=== PATIENT | male | born 1970 | race Caucasian/White ===

== ENCOUNTER → 2018-04-03 | Outpatient (CLI) | payer OTHER ==
[~2018-04-03] MED LIST: ALPR1TAB3 PO; DICL1GEL12 TOP; IBUP-1050 PO; LRS20 PO; NAPR1TAB9 PO; OMEP-107 PO
[2018-04-03 12:09] LABS: HEMATOCRIT 52.1 % (42-52); HEMOGLOBIN 18.4 g/dL (14.0-18.0); MEAN CELL VOLUME 89.8 fL (80-100); MEAN CORPUSCULAR HEMOGLOBIN 31.7 pg (25-34); MEAN CORPUSCULAR HGB CONC 35.3 g/dl (32-36); MEAN PLATELET VOLUME 9.8 fL (7.4-10.4); PLATELET COUNT 167 K/uL (130-400); RED CELL DISTRIBUTION WIDTH CV 13.6 % (11.5-14.5); RED CELL DISTRIBUTION WIDTH SD 44.4 fL (36.4-46.3); WHITE BLOOD COUNT 9.24 K/uL (4.8-10.8)
[2018-04-03 12:21] LABS: ALT/SGPT 88 U/L (12-78); AST/SGOT 52 U/L (15-37); BLOOD UREA NITROGEN 20 mg/dl (7-18); CALCIUM 9.1 mg/dl (8.5-10.1); CARBON DIOXIDE 28 mmol/L (21-32); CHOLESTEROL 194 mg/dl (0-200); CREATININE 1.62 mg/dl (0.60-1.40); GLUCOSE 79 mg/dl (70-99); SODIUM 140 mmol/L (136-145)
[2018-04-03 12:24] LABS: LDL CHOLESTEROL CALCULATED 123 mg/dl
== END | disposition home or self-care (01) ==
LOC: C.LAB1850 10:52
PROVIDERS: ATTEND Internal Medicine Cardiovascular Disease
DX: Z00.00 Encounter for general adult medical examination without abnormal findings (principal); R79.89 Other specified abnormal findings of blood chemistry; R00.2 Palpitations; R01.1 Cardiac murmur, unspecified